=== PATIENT | male | born 1945 | race Caucasian/White ===

== ENCOUNTER → 2017-01-20 | Outpatient (CLI) | payer MEDICARE, BC | END | disposition home or self-care (01) | LOC: CFH 13:35 | PROVIDERS: ATTEND Internal Medicine | DX: Z12.2 Encounter for screening for malignant neoplasm of respiratory organs (principal); R91.8 Other nonspecific abnormal finding of lung field; I25.10 Atherosclerotic heart disease of native coronary artery without angina pectoris; J84.10 Pulmonary fibrosis, unspecified; E78.1 Pure hyperglyceridemia; F32.89 Other specified depressive episodes; K21.9 Gastro-esophageal reflux disease without esophagitis; Z87.891 Personal history of nicotine dependence | CPT/HCPCS: G0297 ==

== ENCOUNTER 2018-04-27 11:49 | Observation (INO) | payer MEDICARE ==
[~2018-04-27] VITALS: Ht 170.2 cm; Wt 81.0 kg
[2018-04-27 12:45] VITALS: BP 97/62
[2018-04-27] MEDS ORDERED: PAIN MED PO (12:55)
[2018-04-27] MEDS ORDERED: LACTATED RINGERS 1,000 ML IV SCH (12:55)
[2018-04-27] MEDS ORDERED: MIDAZOLAM 1 MG/ML, 2ML ONE (15:59)
[2018-04-27] MEDS ORDERED: FENTANYL PF 250 MCG/5ML ONE (15:59)
[2018-04-27] MEDS ORDERED: SUCCINYLCHOLINE 20 MG/ML, 10ML ONE (16:06)
[2018-04-27] MEDS ORDERED: LIDOCAINE 2% 100MG/5ML SYRINGE ONE (16:06)
[2018-04-27] MEDS ORDERED: PROPOFOL 10 MG/ML, 20ML ONE (16:06)
[2018-04-27] MEDS ORDERED: BUPIVACAINE/PF-EPI 0.25% 1:200K INFIL ONE (16:26)
[2018-04-27] MEDS ORDERED: MORPHINE SULFATE 4 MG/ML, 1ML IVPush PRN (16:30)
[2018-04-27] MEDS ORDERED: LORazepam 2 MG/ML, 1ML IVPush PRN (16:30)
[2018-04-27] MEDS ORDERED: hydrALAzine 20 MG/ML, 1ML IV PRN (16:30)
[2018-04-27] MEDS ORDERED: LABETALOL 5MG/ML, 20ML IV PRN (16:30)
[2018-04-27] MEDS ORDERED: MEPERIDINE/PF 25MG/0.5ML IVPush PRN (16:30)
[2018-04-27] MEDS ORDERED: METOCLOPRAMIDE 5 MG/ML, 2ML IV PRN (16:30)
[2018-04-27] MEDS ORDERED: OXYcodone 5 MG/5 ML ORAL.SOL UDC PO PRN (16:30)
[2018-04-27] MEDS ORDERED: OXYcodone 5 MG/5 ML ORAL.SOL UDC ONE (17:04)
[2018-04-27] MEDS ORDERED: FENTANYL PF 100 MCG/2ML ONE (17:04)
[2018-04-27] MEDS: FENTANYL PF 100 MCG/2ML IV PRN ×2 (17:07→17:13)
[2018-04-27] MEDS ORDERED: HYDROmorphone 1 MG/ML, 1ML ONE (17:23)
[2018-04-27] MEDS: HYDROmorphone 2 MG/ML, 1ML IVPush PRN ×3 (17:25→17:38)
[2018-04-27] MEDS ORDERED: ONDANSETRON 2MG/ML, 2ML IVPush PRN (18:30)
[2018-04-27] MEDS ORDERED: KETOROLAC 30 MG/1 ML IV PRN (18:30)
[2018-04-27 19:54] VITALS: BP 90/52
[2018-04-27] MEDS: DOCUSATE 100 MG CAPSULE PO SCH (22:39)
[2018-04-28] MEDS: CEFAZOLIN PMX 2GM/50ML 50 ML IVPB SCH ×3 (00:39→16:08)
[2018-04-28 00:59] VITALS: BP 93/58
[2018-04-28] MEDS ORDERED: SODIUM CHLORIDE 0.9%, 500ML IVBOLUS ONE (03:00)
[2018-04-28] MEDS: OXYcodone IR 5MG TABLET PO PRN ×4 (05:55→19:07)
[2018-04-28 06:06] VITALS: BP 97/57
[2018-04-28] MEDS: DOCUSATE 100 MG CAPSULE PO SCH ×2 (07:45→20:59)
[2018-04-28] MEDS ORDERED: OXYC5TAB3 PO (08:30)
[2018-04-28 14:00] VITALS: BP 101/53
[2018-04-28 19:36] VITALS: BP 98/62
[2018-04-29] MEDS: OXYcodone IR 5MG TABLET PO PRN ×3 (01:29→09:09)
[2018-04-29 02:29] VITALS: BP 100/58
[2018-04-29 07:10] VITALS: BP 102/56
[2018-04-29] MEDS: DOCUSATE 100 MG CAPSULE PO SCH (08:13)
[2018-04-29 11:07] VITALS: BP 116/62
== END 2018-04-29 12:10 | disposition home or self-care (01) ==
LOC: OUT 11:49 → 4NOR 18:06 → OUT 18:16 → 4NOR 18:16
PROVIDERS: ADMIT Orthopaedic Surgery; ATTEND Orthopaedic Surgery
DX: S82.301A Unspecified fracture of lower end of right tibia, initial encounter for closed fracture (principal); I25.10 Atherosclerotic heart disease of native coronary artery without angina pectoris; K21.9 Gastro-esophageal reflux disease without esophagitis; E78.1 Pure hyperglyceridemia; X58.XXXA Exposure to other specified factors, initial encounter; Y93.89 Activity, other specified; Y92.89 Other specified places as the place of occurrence of the external cause; Y99.8 Other external cause status
CPT/HCPCS: 27827; 73590; 76000; 96365; 96366; 97116; 97162; 97166; 97605; C1713; G0378; J0330; J0690; J1170; J2250; J2704; J3010; J7040; J7120